=== PATIENT | male | born 1945 | race Caucasian/White ===

== ENCOUNTER 2016-11-18 08:00 | Outpatient (CLI) | payer MEDICARE | END 2016-11-18 08:01 | disposition home or self-care (01) | DX: I10 Essential (primary) hypertension (principal); E78.2 Mixed hyperlipidemia; R73.09 Other abnormal glucose; N40.0 Benign prostatic hyperplasia without lower urinary tract symptoms ==

== ENCOUNTER 2017-01-22 14:13 | Outpatient (CLI) | payer MEDICARE, OTHER ==
--- NOTE | 2017-01-22 17:07 | XRAY Report ---
THREE VIEW LEFT FOOT: 01/22/2017 CLINICAL INDICATION: Pain left 5th metatarsal. FINDINGS: AP, lateral, and oblique views of the left foot demonstrate no evidence of fracture or dis location. Osteoarthritic changes are noted in the 1st metatarsophalangeal joint. No acute fracture is seen. IMPRESSION: OSTEOARTHRITIS. NO EVIDENCE OF FRACTURE. JOB #: [id number] EXT JOB #:[id number]
== END 2017-01-22 14:14 | disposition home or self-care (01) ==
LOC: DI 14:13
PROVIDERS: ATTEND Podiatrist
DX: M19.072 Primary osteoarthritis, left ankle and foot (principal)

== ENCOUNTER 2017-11-28 08:00 | Outpatient (CLI) | payer MEDICARE, OTHER ==
[2017-11-28 12:35] LABS: BASOPHILS # (AUTO) 0.1 10^3/uL (0.0-0.1); EOSINOPHILS # (AUTO) 0.2 10^3/uL (0.0-0.7); EOSINOPHILS % (AUTO) 3.6 %; HGB - HEMOGLOBIN 14.7 g/dL (14.0-18.0); LYMPHOCYTES % (AUTO) 34.7 %; MEAN CORPUSCULAR HEMOGLOBIN 31.3 pg (27.0-31.0); MEAN CORPUSCULAR HGB CONC 33.9 g/dL (32.0-36.0); MEAN CORPUSCULAR VOLUME 92.5 fL (80.0-94.0); MEAN PLATELET VOLUME 10.6 fL (7.4-11.4); MONOCYTES # (AUTO) 0.4 10^3/uL (0.0-1.0); MONOCYTES % (AUTO) 7.2 %; NEUTROPHILS % (AUTO) 53.5 %; PLT - PLATELET COUNT 147 10^3/uL (130-450); RED BLOOD COUNT 4.69 10^6/uL (4.70-6.10); RED CELL DISTRIBUTION WIDTH 13.1 % (12.0-15.0); WHITE BLOOD COUNT 5.6 x10^3/uL (4.8-10.8)
[2017-11-28 13:07] LABS: HB2 TOTAL 16.1 g/dL; HEMOGLOBIN A1C 0.6 g/dL; HEMOGLOBIN A1C % 5.6 % (4.6-6.2)
[2017-11-28 13:15] LABS: ALBUMIN 4.2 g/dL (3.2-5.5); ALBUMIN/GLOBULIN RATIO 1.4 (1.0-2.2); ALKALINE PHOSPHATASE 52 IU/L (42-121); ALT ALANINE AMINOTRANSFERASE 29 IU/L (10-60); AST ASPARTATE AMINOTRANSFERASE 27 IU/L (10-42); BILIRUBIN,TOTAL 0.8 mg/dL (0.2-1.0); BUN - BLOOD UREA NITROGEN < 5 mg/dL (6-20); CALCIUM 8.9 mg/dL (8.5-10.3); CARBON DIOXIDE - CO2 24 mmol/L (21-32); CHLORIDE 105 mmol/L (101-111); CHOL/HDL RATIO 3.5 (<5.0); CHOLESTEROL 149 mg/dL; CREATININE 0.8 mg/dL (0.6-1.2); GFR - MDRD 95 (>89); GLUCOSE 105 mg/dL (70-100); HDL CHOLESTEROL 42 mg/dL; LDL CHOLESTEROL,CALCULATED 90 mg/dL; LDL/HDL RATIO 2.1 (<3.6); SODIUM 137 mmol/L (135-145); TOTAL PROTEIN 7.2 g/dL (6.7-8.2); VLDL CHOLESTEROL 17 mg/dL
== END 2017-11-28 08:01 | disposition home or self-care (01) ==
LOC: LAB.R 08:00
PROVIDERS: ATTEND Nurse Practitioner Primary Care
DX: E88.81 Metabolic syndrome and other insulin resistance (principal); R73.01 Impaired fasting glucose; Z79.899 Other long term (current) drug therapy; I10 Essential (primary) hypertension; E78.5 Hyperlipidemia, unspecified
CPT/HCPCS: 80053; 80061; 83036; 83721; 85025

== ENCOUNTER 2018-02-23 08:00 | Outpatient (CLI) | payer MEDICARE ==
[2018-02-23 13:37] LABS: ALT ALANINE AMINOTRANSFERASE 37 IU/L (10-60); AST ASPARTATE AMINOTRANSFERASE 26 IU/L (10-42); CHOLESTEROL 142 mg/dL; HDL CHOLESTEROL 47 mg/dL; LDL CHOLESTEROL,CALCULATED 73 mg/dL; LDL/HDL RATIO 1.6 (<3.6); VLDL CHOLESTEROL 22 mg/dL
== END 2018-02-23 08:01 | disposition home or self-care (01) ==
LOC: LAB.N 08:00
PROVIDERS: ATTEND Nurse Practitioner Primary Care
DX: E78.5 Hyperlipidemia, unspecified (principal); Z51.81 Encounter for therapeutic drug level monitoring
CPT/HCPCS: 36415; 80061; 83721; 84450; 84460

== ENCOUNTER 2018-04-07 14:37 | Emergency (ER) | payer MEDICARE ==
--- NOTE | 2018-04-07 15:34 | XRAY Report ---
Reason: fall/pain Procedure Date: 04/07/2018 Accession Number: [id number] / [id number] Procedure: XR - Foot 3 View RT CPT Code: FULL RESULT: EXAM: RIGHT FOOT RADIOGRAPHY EXAM DATE: 04/07/2018 03:11 PM. CLINICAL HISTORY: Fall. Pain, greatest in the area of the calcaneus. COMPARISON: Right foot MRI 11/23/2007. TECHNIQUE: 3 views. FINDINGS: Bones: Suspect prior surgical resection both sides of the fifth PIP joint. Trabecular and cortical patterns are intact. Joints: Normal. No subluxations. Soft Tissues: Moderate fifth toe edema. IMPRESSION: 1. No acute bony abnormality. 2. Moderate fifth toe edema, suspect remote osteotomy both sides of the fifth PIP joint. Correlate clinically to exclude cellulitis. RADIA
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
[2018-04-07 16:58] VITALS: BP 136/67
== END 2018-04-07 17:13 | disposition home or self-care (01) ==
LOC: ED 14:37
DX: S90.31XA Contusion of right foot, initial encounter (principal); W22.09XA Striking against other stationary object, initial encounter; W18.30XA Fall on same level, unspecified, initial encounter; Y93.39 Activity, other involving climbing, rappelling and jumping off; Y92.481 Parking lot as the place of occurrence of the external cause; I10 Essential (primary) hypertension; E78.00 Pure hypercholesterolemia, unspecified
CPT/HCPCS: 99282; 99283

== ENCOUNTER 2018-09-10 08:12 | Outpatient (CLI) | payer MEDICARE | END 2018-09-10 23:59 | LOC: LAB.N 08:12 | PROVIDERS: ATTEND Urology | DX: E29.1 Testicular hypofunction (principal) | CPT/HCPCS: 36415; 84403 ==

== ENCOUNTER 2019-07-04 16:23 | Emergency (ER) | payer MEDICARE ==
[2019-07-04 16:38] VITALS: BP 167/98
[2019-07-04 17:16] LABS: BILIRUBIN,URINE NEGATIVE (NEGATIVE); GLUCOSE, URINE (UA) NEGATIVE (NEGATIVE); KETONES,URINE (UA) NEGATIVE (NEGATIVE); LEUKOCYTE ESTERASE, URINE TRACE (NEGATIVE); NITRITE,URINE NEGATIVE (NEGATIVE); OCCULT BLOOD,URINE LARGE (NEGATIVE); PH,URINE 5.5 PH (5.0-7.5); PROTEIN,URINE 100 mg/dL (NEGATIVE); UROBILINOGEN,URINE 0.2 (NORMAL) E.U./dL (NORMAL)
[2019-07-04 17:22] LABS: CLARITY,URINE BLOODY (CLEAR)
[2019-07-04 17:23] LABS: BACTERIA,URINE Moderate /HPF (None Seen); RBC,URINE TNTC /HPF (0-5); SQUAMOUS EPITHELIAL CELL,UR RARE Squamous (<= Few)
--- NOTE | 2019-07-04 17:48 | ED Physician Documentation ---
PD HPI MALE - Stated complaint Stated Complaint: MALE - Chief complaint Chief Complaint: UTI - History obtained from History obtained from: Patient (This is a relatively healthy 74-year-old gentleman. Many years ago he had a TURP. He also had a case of urosepsis a few years ago. More recently on May 17 had a pelvic sling because of stress incontinence. Today started to develop dysuria and rosario colored hematuria. There is no fevers, back pain, nausea with it. He says that when he had his postop appoint with urologist after the sling his postvoid residual was only 5 mL.) Review of Systems Constitutional: denies: Fever, Chills GI: denies: Abdominal Pain, Nausea, Vomiting : reports: Dysuria, Frequency PD PAST MEDICAL HISTORY - Past Medical History Cardiovascular: Hypertension, High cholesterol Respiratory: None Endocrine/Autoimmune: None GI: None : Incontinence HEENT: None Psych: None Musculoskeletal: None Derm: None - Past Surgical History Past Surgical History: Yes - Present Medications Home Medications: Ambulatory Orders Medication Instructions Recorded Confirmed Atorvastatin Calcium 20 mg PO DAILY 10/21/18 10/21/18 Cholecalciferol (Vitamin D3) 1 cap PO DAILY 10/21/18 10/21/18 [Vitamin D3] Losartan Potassium 50 mg PO DAILY 10/21/18 10/21/18 Multivit-Min/FA/Lycopen/Lutein 1 tab PO DAILY 10/21/18 10/21/18 [Adults 50 Plus Multivitamin] Psyllium Husk [Daily Fiber] 0.52 gm PO DAILY 10/21/18 10/21/18 Ciprofloxacin HCl [Cipro] 500 mg PO BID #20 tablet 07/04/19 - Allergies Allergies/Adverse Reactions: Allergies Allergy/AdvReac Type Severity Reaction Status Date / Time lisinopril AdvReac Intermediate Unknown Verified 10/21/18 16:09 - Social History Does the pt smoke?: No Smoking Status: Never smoker Does the pt drink ETOH?: Yes Does the pt have substance abuse?: No - Immunizations Immunizations are current?: Yes - POLST Patient has POLST: No PD ED PE NORMAL - Vitals Vital signs reviewed: Yes - General General: Alert and oriented X 3, No acute distress - Abdomen Abdomen: Normal bowel sounds, Soft, Non tender - Back Back: No CVA TTP, No spinal TTP - Derm Derm: Normal color, Warm and dry - Extremities Extremities: No calf tenderness / cord - Neuro Neuro: Alert and oriented X 3, Normal speech Results - Vitals Vitals: Vital Signs - 24 hr 07/04/19 16:33 Temperature 36.9 C Heart Rate 80 Respiratory 18 Rate Blood Pressure 167/98 H O2 Saturation 99 Oxygen O2 Source Room air - Labs Labs: Laboratory Tests 07/04/19 07/04/19 07/04/19 16:50 18:05 18:05 WBC 11.6 H RBC 4.53 L Hgb 14.2 Hct 43.5 MCV 96.0 H MCH 31.3 H MCHC 32.6 RDW 12.4 Plt Count 179 MPV 11.4 Neut # (Auto) 9.0 H Lymph # (Auto) 1.6 [place] # (Auto) 0.6 Eos # (Auto) 0.3 Baso # (Auto) 0.1 Absolute Nucleated RBC 0.00 Nucleated RBC % 0.0 Sodium 139 Potassium 3.8 Chloride 105 Carbon Dioxide 25 Anion Gap 9.0 BUN 22 H Creatinine 0.9 Estimated GFR (MDRD) 83 L Glucose 104 H Lactic Acid Calcium 9.8 Urine Color RED/BLOODY Urine Clarity BLOODY Urine pH 5.5 Ur Specific [place] 1.025 Urine Protein 100 H Urine Glucose (UA) NEGATIVE Urine Ketones NEGATIVE Urine Occult Blood LARGE H Urine Nitrite NEGATIVE Urine Bilirubin NEGATIVE Urine Urobilinogen 0.2 (NORMAL) Ur Leukocyte Esterase TRACE H Urine RBC TNTC H Urine WBC 11-25 H Ur Squamous Epith Cells RARE Squamous Urine Bacteria Moderate H Ur Microscopic Review INDICATED Urine Culture Comments INDICATED 07/04/19 18:05 WBC RBC Hgb Hct MCV MCH MCHC RDW Plt Count MPV Neut # (Auto) Lymph # (Auto) [place] # (Auto) Eos # (Auto) Baso # (Auto) Absolute Nucleated RBC Nucleated RBC % Sodium Potassium Chloride Carbon Dioxide Anion Gap BUN Creatinine Estimated GFR (MDRD) Glucose Lactic Acid 0.7 Calcium Urine Color Urine Clarity Urine pH Ur Specific [place] Urine Protein Urine Glucose (UA) Urine Ketones Urine Occult Blood Urine Nitrite Urine Bilirubin Urine Urobilinogen Ur Leukocyte Esterase Urine RBC Urine WBC Ur Squamous Epith Cells Urine Bacteria Ur Microscopic Review Urine Culture Comments PD MEDICAL DECISION MAKING - ED course ED course: 74-year-old gentleman with history of urosepsis presents with UTI symptoms. He does not appear ill. Consideration for urinary retention given recent pelvic sling, however per his history is postvoid residual after the pelvic sling was negligible. Labs are really inconsistent with sepsis other than very mild leukocytosis. He was administered IM Rocephin here. Departure - Departure Disposition: 01 Home, Self Care Clinical Impression: Cystitis Condition: Good Record reviewed to determine appropriate education?: Yes Instructions: ED UTI Cystitis Male Prescriptions: Ciprofloxacin HCl [Cipro] 500 mg PO BID #20 tablet Comments: Not a terrible idea to follow-up with your urologist again given the proximity of timing to your surgery, there is no evidence of sepsis. We will culture your urine, the results should be done in 48-72 hours. If an antibiotic change is necessary we will call you. Return if worse in the meantime, especially if you develop increasing flank pain, fevers, or cannot keep down the medication. Discharge Date/Time: 07/04/19 18:52
[2019-07-04] MEDS ORDERED: LIDOCAINE 1% 2 ML VIAL MC ONE (18:05)
[2019-07-04] MEDS ORDERED: cefTRIAXone 1 GM VIAL IM STA (18:05)
[2019-07-04 18:18] LABS: BASOPHILS # (AUTO) 0.1 10^3/uL (0.0-0.1); BASOPHILS % (AUTO) 0.6 %; EOSINOPHILS # (AUTO) 0.3 10^3/uL (0.0-0.7); EOSINOPHILS % (AUTO) 2.2 %; HGB - HEMOGLOBIN 14.2 g/dL (14.0-18.0); LYMPHOCYTES # (AUTO) 1.6 10^3/uL (1.5-3.5); LYMPHOCYTES % (AUTO) 13.7 %; MEAN CORPUSCULAR HEMOGLOBIN 31.3 pg (27.0-31.0); MEAN CORPUSCULAR HGB CONC 32.6 g/dL (32.0-36.0); MEAN PLATELET VOLUME 11.4 fL (7.4-11.4); MONOCYTES # (AUTO) 0.6 10^3/uL (0.0-1.0); MONOCYTES % (AUTO) 5.3 %; NEUTROPHILS % (AUTO) 77.7 %; PLT - PLATELET COUNT 179 10^3/uL (130-450); RED BLOOD COUNT 4.53 10^6/uL (4.70-6.10); RED CELL DISTRIBUTION WIDTH 12.4 % (12.0-15.0); WHITE BLOOD COUNT 11.6 x10^3/uL (4.8-10.8)
[2019-07-04 18:23] LABS: CALCIUM 9.8 mg/dL (8.5-10.3); CREATININE 0.9 mg/dL (0.6-1.2)
== END 2019-07-04 18:52 | disposition home or self-care (01) ==
LOC: ED 16:23
DX: N30.91 Cystitis, unspecified with hematuria (principal); I10 Essential (primary) hypertension
CPT/HCPCS: 36415; 80048; 81001; 81003; 83605; 85025; 87040; 87086; 87181; 96374; 99283

== ENCOUNTER 2019-09-17 07:43 | Outpatient (CLI) | payer MEDICARE ==
[2019-09-17 11:50] LABS: BASOPHILS % (AUTO) 0.5 %; EOSINOPHILS # (AUTO) 0.3 10^3/uL (0.0-0.7); EOSINOPHILS % (AUTO) 5.3 %; HGB - HEMOGLOBIN 14.2 g/dL (14.0-18.0); LYMPHOCYTES # (AUTO) 1.2 10^3/uL (1.5-3.5); LYMPHOCYTES % (AUTO) 20.5 %; MEAN CORPUSCULAR HEMOGLOBIN 31.1 pg (27.0-31.0); MEAN CORPUSCULAR HGB CONC 32.2 g/dL (32.0-36.0); MEAN CORPUSCULAR VOLUME 96.5 fL (80.0-94.0); MEAN PLATELET VOLUME 11.6 fL (7.4-11.4); MONOCYTES # (AUTO) 0.4 10^3/uL (0.0-1.0); MONOCYTES % (AUTO) 5.8 %; NEUTROPHILS # (AUTO) 4.1 10^3/uL (1.5-6.6); NEUTROPHILS % (AUTO) 67.6 %; PLT - PLATELET COUNT 157 10^3/uL (130-450); RED BLOOD COUNT 4.57 10^6/uL (4.70-6.10); RED CELL DISTRIBUTION WIDTH 12.8 % (12.0-15.0); WHITE BLOOD COUNT 6.1 x10^3/uL (4.8-10.8)
[2019-09-17 12:08] LABS: ALBUMIN 3.9 g/dL (3.2-5.5); ALBUMIN/GLOBULIN RATIO 1.3 (1.0-2.2); ALKALINE PHOSPHATASE 57 IU/L (42-121); ALT ALANINE AMINOTRANSFERASE 32 IU/L (10-60); AST ASPARTATE AMINOTRANSFERASE 31 IU/L (10-42); BUN - BLOOD UREA NITROGEN 18 mg/dL (6-20); CALCIUM 8.7 mg/dL (8.5-10.3); CARBON DIOXIDE - CO2 25 mmol/L (21-32); CHLORIDE 101 mmol/L (101-111); CHOL/HDL RATIO 2.6 (<5.0); CHOLESTEROL 132 mg/dL; CREATININE 0.8 mg/dL (0.6-1.2); GFR - MDRD 95 (>89); GLUCOSE 108 mg/dL (70-100); HDL CHOLESTEROL 51 mg/dL; LDL CHOLESTEROL,CALCULATED 70 mg/dL; LDL/HDL RATIO 1.4 (<3.6); SODIUM 137 mmol/L (135-145); TOTAL PROTEIN 6.8 g/dL (6.7-8.2); VLDL CHOLESTEROL 11 mg/dL
[2019-09-17 12:25] LABS: HB2 TOTAL 13.9 g/dL; HEMOGLOBIN A1C 0.61 g/dL; HEMOGLOBIN A1C % 6.2 % (4.6-6.2)
== END 2019-09-17 23:59 | disposition home or self-care (01) ==
LOC: LAB.N 07:43
PROVIDERS: ATTEND Family Medicine
DX: E78.5 Hyperlipidemia, unspecified (principal); R73.03 Prediabetes; R35.0 Frequency of micturition; I10 Essential (primary) hypertension
CPT/HCPCS: 36415; 80053; 80061; 83036; 83721; 84443; 85025

== ENCOUNTER 2020-10-09 07:55 | Outpatient (CLI) | payer MEDICARE ==
[2020-10-09 11:41] LABS: HCT - HEMATOCRIT 45.8 % (42.0-52.0); HGB - HEMOGLOBIN 14.8 g/dL (14.0-18.0); MEAN CORPUSCULAR HEMOGLOBIN 31.2 pg (27.0-31.0); MEAN CORPUSCULAR HGB CONC 32.3 g/dL (32.0-36.0); MEAN CORPUSCULAR VOLUME 96.4 fL (80.0-94.0); MEAN PLATELET VOLUME 12.3 fL (7.4-11.4); RED BLOOD COUNT 4.75 10^6/uL (4.70-6.10); RED CELL DISTRIBUTION WIDTH 12.4 % (12.0-15.0); WHITE BLOOD COUNT 5.7 x10^3/uL (4.8-10.8)
[2020-10-09 11:59] LABS: ALBUMIN 4.2 g/dL (3.2-5.5); ALBUMIN/GLOBULIN RATIO 1.4 (1.0-2.2); ALKALINE PHOSPHATASE 61 IU/L (42-121); ALT ALANINE AMINOTRANSFERASE 34 IU/L (10-60); AST ASPARTATE AMINOTRANSFERASE 36 IU/L (10-42); BUN - BLOOD UREA NITROGEN 16 mg/dL (6-20); CALCIUM 9.4 mg/dL (8.5-10.3); CARBON DIOXIDE - CO2 26 mmol/L (21-32); CHLORIDE 103 mmol/L (101-111); CHOL/HDL RATIO 2.8 (<5.0); CHOLESTEROL 158 mg/dL; CREATININE 0.9 mg/dL (0.6-1.2); GFR - MDRD 82 (>89); GLUCOSE 124 mg/dL (70-100); HDL CHOLESTEROL 57 mg/dL; LDL CHOLESTEROL,CALCULATED 80 mg/dL; LDL/HDL RATIO 1.4 (<3.6); POTASSIUM 4.2 mmol/L (3.5-5.0); SODIUM 139 mmol/L (135-145); TOTAL PROTEIN 7.1 g/dL (6.7-8.2); TRIGLYCERIDES 104 mg/dL; VLDL CHOLESTEROL 21 mg/dL
[2020-10-09 12:10] LABS: THYROID STIMULATING HORMONE 2.58 uIU/mL (0.34-5.60)
[2020-10-09 12:45] LABS: ESTIMATED AVERAGE GLUCOSE 114 mg/dL (70-100); HEMOGLOBIN A1c% 5.6 % (4.27-6.07)
== END 2020-10-09 07:56 | disposition home or self-care (01) ==
LOC: LAB.N 07:55
PROVIDERS: ATTEND Family Medicine
DX: E78.5 Hyperlipidemia, unspecified (principal); R32 Unspecified urinary incontinence; I10 Essential (primary) hypertension; R73.9 Hyperglycemia, unspecified
CPT/HCPCS: 36415; 80053; 80061; 83036; 84443; 85027; G0103; 83721; 84153

== ENCOUNTER 2021-11-21 08:44 | Outpatient (CLI) | payer MEDICARE ==
[2021-11-21 12:08] LABS: BASOPHILS # (AUTO) 0.1 10^3/uL (0.0-0.1); BASOPHILS % (AUTO) 1.2 %; EOSINOPHILS # (AUTO) 0.4 10^3/uL (0.0-0.7); EOSINOPHILS % (AUTO) 7.7 %; HCT - HEMATOCRIT 42.3 % (42.0-52.0); HGB - HEMOGLOBIN 14.1 g/dL (14.0-18.0); LYMPHOCYTES # (AUTO) 1.4 10^3/uL (1.5-3.5); LYMPHOCYTES % (AUTO) 24.6 %; MEAN CORPUSCULAR HEMOGLOBIN 31.7 pg (27.0-31.0); MEAN CORPUSCULAR HGB CONC 33.3 g/dL (32.0-36.0); MEAN CORPUSCULAR VOLUME 95.1 fL (80.0-94.0); MEAN PLATELET VOLUME 12.1 fL (7.4-11.4); MONOCYTES # (AUTO) 0.3 10^3/uL (0.0-1.0); MONOCYTES % (AUTO) 5.3 %; NEUTROPHILS # (AUTO) 3.5 10^3/uL (1.5-6.6); NEUTROPHILS % (AUTO) 60.8 %; PLT - PLATELET COUNT 163 10^3/uL (130-450); RED BLOOD COUNT 4.45 10^6/uL (4.70-6.10); RED CELL DISTRIBUTION WIDTH 12.9 % (12.0-15.0); WHITE BLOOD COUNT 5.7 x10^3/uL (4.8-10.8)
[2021-11-21 12:46] LABS: ALBUMIN 4.2 g/dL (3.2-5.5); ALBUMIN/GLOBULIN RATIO 1.4 (1.0-2.2); ALKALINE PHOSPHATASE 62 IU/L (42-121); ALT ALANINE AMINOTRANSFERASE 36 IU/L (10-60); AST ASPARTATE AMINOTRANSFERASE 33 IU/L (10-42); BILIRUBIN,TOTAL 1.2 mg/dL (0.2-1.0); BUN - BLOOD UREA NITROGEN 18 mg/dL (6-20); CALCIUM 9.4 mg/dL (8.5-10.3); CARBON DIOXIDE - CO2 27 mmol/L (21-32); CHLORIDE 102 mmol/L (101-111); CHOL/HDL RATIO 2.5 (<5.0); CHOLESTEROL 141 mg/dL; GFR - MDRD 73 (>89); GLUCOSE 109 mg/dL (70-100); HDL CHOLESTEROL 56 mg/dL; LDL CHOLESTEROL,CALCULATED 72 mg/dL; LDL/HDL RATIO 1.3 (<3.6); POTASSIUM 4.2 mmol/L (3.5-5.0); SODIUM 139 mmol/L (135-145); TOTAL PROTEIN 7.2 g/dL (6.7-8.2); TRIGLYCERIDES 67 mg/dL; VLDL CHOLESTEROL 13 mg/dL
[2021-11-21 12:53] LABS: THYROID STIMULATING HORMONE 1.99 uIU/mL (0.34-5.60)
== END 2021-11-21 08:45 | disposition home or self-care (01) ==
LOC: LAB.N 08:44
PROVIDERS: ATTEND Family Medicine
DX: R73.03 Prediabetes (principal); E78.5 Hyperlipidemia, unspecified; I10 Essential (primary) hypertension
CPT/HCPCS: 36415; 80053; 80061; 81599; 83036; 83721; 84443; 85025

== ENCOUNTER 2021-12-04 09:35 | Outpatient (CLI) | payer MEDICARE ==
--- NOTE | 2021-12-04 15:21 | XRAY Report ---
PROCEDURE: Shoulder 2 View LT INDICATIONS: IMPINGEMENT SYNDROME OF LT SHOULDER TECHNIQUE: 3 views of the shoulder were acquired. COMPARISON: None. FINDINGS: Bones: No fractures or dislocations. No suspicious bony lesions. Visualized ribs appear intact. M oderate to severe acromioclavicular degenerative narrowing. Small osteophytes are present. Mild gleno humeral narrowing. Soft tissues: No suspicious soft tissue calcifications. IMPRESSION: Acromioclavicular and glenohumeral arthritic narrowing. Reviewed by: Keyonna Purcell MD on 12/04/2021 3:19 PM PDT Approved by: Keyonna Purcell MD on 12/04/2021 3:19 PM PDT Station ID: [id number]
== END 2021-12-04 09:36 | disposition home or self-care (01) ==
LOC: DI 09:35
PROVIDERS: ATTEND Family Medicine
DX: M75.42 Impingement syndrome of left shoulder (principal); M19.012 Primary osteoarthritis, left shoulder

== ENCOUNTER 2023-06-28 07:25 | Outpatient (CLI) | payer MEDICARE ==
[2023-06-28 07:46] LABS: BASOPHILS # (AUTO) 0.1 10^3/uL (0.0-0.1); BASOPHILS % (AUTO) 1.2 %; EOSINOPHILS # (AUTO) 0.2 10^3/uL (0.0-0.7); EOSINOPHILS % (AUTO) 3.7 %; HCT - HEMATOCRIT 42.1 % (42.0-52.0); HGB - HEMOGLOBIN 13.6 g/dL (14.0-18.0); LYMPHOCYTES # (AUTO) 1.8 10^3/uL (1.5-3.5); LYMPHOCYTES % (AUTO) 28.1 %; MEAN CORPUSCULAR HEMOGLOBIN 30.8 pg (27.0-31.0); MEAN CORPUSCULAR HGB CONC 32.3 g/dL (32.0-36.0); MEAN CORPUSCULAR VOLUME 95.2 fL (80.0-94.0); MEAN PLATELET VOLUME 10.2 fL (7.4-11.4); MONOCYTES # (AUTO) 0.5 10^3/uL (0.0-1.0); NEUTROPHILS # (AUTO) 3.8 10^3/uL (1.5-6.6); NEUTROPHILS % (AUTO) 59.7 %; PLT - PLATELET COUNT 229 10^3/uL (130-450); RED BLOOD COUNT 4.42 10^6/uL (4.70-6.10); RED CELL DISTRIBUTION WIDTH 13.2 % (12.0-15.0); WHITE BLOOD COUNT 6.4 x10^3/uL (4.8-10.8)
[2023-06-28 08:10] LABS: ALBUMIN 4.1 g/dL (3.2-5.5); ALBUMIN/GLOBULIN RATIO 1.6 (1.0-2.2); ALKALINE PHOSPHATASE 68 IU/L (42-121); ALT ALANINE AMINOTRANSFERASE 40 IU/L (10-60); AST ASPARTATE AMINOTRANSFERASE 29 IU/L (10-42); BUN - BLOOD UREA NITROGEN 15 mg/dL (6-20); CALCIUM 9.3 mg/dL (8.5-10.3); CARBON DIOXIDE - CO2 30 mmol/L (21-32); CHLORIDE 101 mmol/L (101-111); CHOL/HDL RATIO 2.5 (<5.0); CHOLESTEROL 121 mg/dL; CREATININE 0.8 mg/dL (0.6-1.3); GFR - MDRD 94 (>89); GLUCOSE 119 mg/dL (74-104); HDL CHOLESTEROL 49 mg/dL; LDL CHOLESTEROL,CALCULATED 54 mg/dL; LDL/HDL RATIO 1.1 (<3.6); POTASSIUM 4.2 mmol/L (3.5-4.5); SODIUM 136 mmol/L (135-145); TOTAL PROTEIN 6.7 g/dL (6.4-8.9); TRIGLYCERIDES 91 mg/dL (48-352); VLDL CHOLESTEROL 18 mg/dL
[2023-06-28 08:24] LABS: THYROID STIMULATING HORMONE 2.38 uIU/mL (0.34-5.60)
--- NOTE | 2023-06-28 10:32 | XRAY Report ---
PROCEDURE: Chest 2 View X-Ray INDICATIONS: DYSPNEA ON EXERTION TECHNIQUE: 2 views of the chest were acquired. COMPARISON: None. FINDINGS: Surgical changes and devices: None. Lungs and pleura: There is flattening of the diaphragms. Bibasilar atelectasis. No pleural effusions or pneumothorax. Lungs are clear. Mediastinum: Mediastinal contours appear normal. Heart size is normal. Bones and chest wall: No suspicious bony lesions. Overlying soft tissues appear unremarkable. IMPRESSION: Flattening of the diaphragms may reflect poor inspiratory effort versus sequela of chronic obstructiv e etiologies. Reviewed by: Remberto Evans MD on 06/28/2023 9:31 AM [facility] Approved by: Rembetro Evans MD on 06/28/2023 9:31 AM [facility] Station ID: [id number]
[2023-06-28 11:07] LABS: ESTIMATED AVERAGE GLUCOSE 111 mg/dL (70-100); HEMOGLOBIN A1c% 5.5 % (4.27-6.07)
== END 2023-06-28 07:26 | disposition home or self-care (01) ==
LOC: DI 07:25
PROVIDERS: ATTEND Physician Assistant
DX: R06.9 Unspecified abnormalities of breathing (principal); U09.9 Post COVID-19 condition, unspecified; R73.03 Prediabetes; E78.5 Hyperlipidemia, unspecified; I10 Essential (primary) hypertension
CPT/HCPCS: 36415; 80053; 80061; 83036; 83721; 83880; 84443; 85025

== ENCOUNTER 2023-07-15 08:45 | Outpatient (CLI) | payer MEDICARE | END 2023-07-15 08:46 | disposition critical access hospital (66) | LOC: EMS 08:45 | DX: I48.91 Unspecified atrial fibrillation (principal); R06.02 Shortness of breath; M79.89 Other specified soft tissue disorders | CPT/HCPCS: A0425; A0429 ==

== ENCOUNTER 2023-07-15 09:07 | Inpatient (IN) | payer MEDICARE ==
--- NOTE | 2023-07-15 09:38 | ED Physician Documentation ---
PD HPI CHEST PAIN - Stated complaint Stated Complaint: AFIB/RVR - Chief complaint Chief Complaint: Cardiac - History obtained from History obtained from: Patient - History of Present Illness Timing - onset: How many months ago (1-2 months of progressive dyspnea on exertion, orthopnea, and cough/wheezing.) Timing - onset during: Light activity (The patient has noticed a feeling of palpitations and fast heart rate at times with activity and also progressive dyspnea on exertion to the point of difficulty even walking across the room or short flight of stairs now the past week or so. Has noticed pedal edema as well and orthopnea.), Exertion Timing - duration: Weeks Timing - details: Gradual onset, Still present Quality: Tightness Location: Substernal, Left chest Radiation: No: Jaw, Neck Associated symptoms: Palpitations (intermittently, not consistent.), Cough (He did have a viral type illness about 2 months ago in early May tested positive for COVID. Has had some level of fatigue and dyspnea and some persistent cough for at least a month after that. He presume current symptoms were related.) Recently seen: Clinic (Seen at walk-in clinic about 3 weeks ago for this. Had a negative chest x-ray. BNP was low 300s. Blood count electrolytes were okay. He was in a sinus rhythm reportedly at that time. Treated with an inhaler presumed respiratory.) PD PAST MEDICAL HISTORY - Past Medical History Past Medical History: Yes Cardiovascular: Hypertension, High cholesterol Respiratory: None Endocrine/Autoimmune: None GI: None : Incontinence, Other HEENT: None Psych: None Musculoskeletal: None Derm: None Other Past Medical History: UTI requiring hospitalization. - Past Surgical History Past Surgical History: Yes - Present Medications Home Medications: Ambulatory Orders Medication Instructions Recorded Confirmed Atorvastatin Calcium 20 mg PO DAILY 10/21/18 07/15/23 Cholecalciferol (Vitamin D3) 1 cap PO DAILY 10/21/18 07/15/23 [Vitamin D3] Losartan Potassium 50 mg PO DAILY 10/21/18 07/15/23 Multivit-Min/FA/Lycopen/Lutein 1 tab PO DAILY 10/21/18 07/15/23 [Adults 50 Plus Multivitamin] Psyllium Husk [Daily Fiber] 0.52 gm PO DAILY 10/21/18 07/15/23 Albuterol Sulf [Ventolin Hfa 1 inh INH PRN PRN 07/15/23 07/15/23 Inhaler] - Allergies Allergies/Adverse Reactions: Allergies Allergy/AdvReac Type Severity Reaction Status Date / Time latex Allergy Rash Verified 07/15/23 09:39 lisinopril AdvReac Intermediate Unknown Verified 01/14/22 05:43 - Social History Does the pt smoke?: No Smoking Status: Never smoker Does the pt drink ETOH?: Yes Does the pt have substance abuse?: No - Immunizations Immunizations are current?: Yes - POLST Patient has POLST: No PD ED PE NORMAL - Vitals Vital signs reviewed: Yes (HR tachycardic) - General General: Alert and oriented X 3, Well developed/nourished - Neck Neck: Supple, no meningeal sign, No adenopathy - Cardiac Cardiac: No murmur. No: RRR (irregular and tachycardic) - Respiratory Respiratory: No respiratory distress. No: Clear bilaterally (fine crackles both bases about third way up. ) - Abdomen Abdomen: Soft, Non tender - Derm Derm: Normal color, Warm and dry - Extremities Extremities: No tenderness to palpate, Normal ROM s pain, No calf tenderness / cord, Other (1+ edema in both lower legs up to the shins) - Neuro Neuro: Alert and oriented X 3, No motor deficit, Normal speech Results - Vitals Vitals: Vital Signs - 24 hr 07/15/23 07/15/23 07/15/23 09:09 11:10 11:27 Temperature 36.9 C Heart Rate 124 H 133 H 114 H Respiratory 14 Rate Blood Pressure 142/101 H 144/97 H 129/106 H O2 Saturation 95 07/15/23 07/15/23 07/15/23 11:30 11:35 11:57 Temperature Heart Rate 118 H 105 H 113 H Respiratory Rate Blood Pressure 130/96 H 119/86 H 127/89 H O2 Saturation 07/15/23 07/15/23 07/15/23 12:01 12:16 12:51 Temperature Heart Rate 134 H 124 H 126 H Respiratory 24 Rate Blood Pressure 150/121 H 159/88 H 143/83 H O2 Saturation 95 07/15/23 07/15/23 07/15/23 12:56 14:25 14:35 Temperature Heart Rate 123 H 134 H 107 H Respiratory 32 H Rate Blood Pressure 141/113 H 118/101 H 124/87 H O2 Saturation 97 07/15/23 07/15/23 14:40 14:50 Temperature Heart Rate 96 116 H Respiratory Rate Blood Pressure 143/98 H 138/83 H O2 Saturation Oxygen O2 Source Room air - EKG (time done) 09:15 EKG releavant findings:: EKG personally interpreted by author of this note. Relevant findings are: Rate: Rate (enter#) (135) Rhythm: Atrial fibrillation QRS: Normal Ischemia: Normal ST segments. No: ST elevation c/w ischemia, ST depression - Labs Labs: Laboratory Tests 07/15/23 07/15/23 07/15/23 09:36 09:36 09:36 WBC 6.9 RBC 4.26 L Hgb 12.9 L Hct 40.7 L MCV 95.5 H MCH 30.3 MCHC 31.7 L RDW 13.5 Plt Count 181 MPV 10.9 Neut # (Auto) 5.6 Lymph # (Auto) 0.7 L [place] # (Auto) 0.4 Eos # (Auto) 0.1 Baso # (Auto) 0.1 Absolute Nucleated RBC 0.00 Nucleated RBC % 0.0 D-Dimer 235.6 Sodium 134 L Potassium 4.3 Chloride 101 Carbon Dioxide 27 Anion Gap 6.0 BUN 17 Creatinine 0.8 Estimated GFR (MDRD) 94 Glucose 143 H Calcium 9.4 Magnesium Total Bilirubin 1.1 H AST 27 ALT 33 Alkaline Phosphatase 76 Troponin I High Sens 15.6 B-Natriuretic Peptide Total Protein 6.6 Albumin 4.2 Globulin 2.4 Albumin/Globulin Ratio 1.8 Lipase 16 TSH 07/15/23 07/15/23 07/15/23 09:36 09:36 14:39 WBC RBC Hgb Hct MCV MCH MCHC RDW Plt Count MPV Neut # (Auto) Lymph # (Auto) [place] # (Auto) Eos # (Auto) Baso # (Auto) Absolute Nucleated RBC Nucleated RBC % D-Dimer Sodium 135 Potassium 3.8 Chloride 100 L Carbon Dioxide 27 Anion Gap 8.0 BUN 15 Creatinine 0.8 Estimated GFR (MDRD) 94 Glucose 134 H Calcium 9.6 Magnesium 1.7 1.7 Total Bilirubin AST ALT Alkaline Phosphatase Troponin I High Sens B-Natriuretic Peptide 303 H Total Protein Albumin Globulin Albumin/Globulin Ratio Lipase TSH 2.10 - Rads (name of study) chest xray Relevant Findings:: Prelim report reviewed, EMP independent interpretation of test (CHF without effusions) PD Medical Decision Making - ED course Complexity details: re-evaluated patient (The patient was given doses of diltiazem IV and aliquots of 10 mill grams and then 15 mg. He had slowing of the heart rate but still increased again up above 1 10-1 20. Blood pressure is good. He was given diuretic dose of furosemide 20 mg IV as well.), considered differential (Atrial fibrillation with fast ventricular rate. Unclear duration and could even be days to a week or so. Was seen at the clinic for dyspnea end of June with a normal sinus rhythm at that time. Does have some congestive failure with edema, orthopnea, vascular congestion on x-ray. Neg trop.), d/w patient ED course: The patient is described some feeling of fast heart rate and palpitations intermittently over the last several weeks. Unclear if consistent atrial fibrillation with fast rate versus it paroxysmal. He did not really feel it consistently here after slowing down a bit with some diltiazem. So unclear duration and certainly not clearly under 48 hours. He does have progressive orthopnea, edema, dyspnea on exertion and has a chest x-ray and lung sounds consistent with some congestive failure. He was given furosemide 20 mg IV diuretic. This may be rate related as opposed to ischemic. I did order a echocardiogram which may help guide us on this. The patient was given doses of diltiazem. We will want to start anticoagulation as well. I will defer that to the hospitalist. We are not getting consistent rate control with IV doses and so I talked with the hospitalist about further care in the hospital. He is not hypoxic. He is blood pressure is good. Troponin is negative. BNP is elevated only in the 300s but clinically he does have fluid overload. Kidney function is adequate. Electrolytes are good at this point but certainly will want to recheck them after the diuretic effect. He has been putting out decent amount of urine after the furosemide. He was given 3 separate doses of diltiazem IV with slowing of his heart rate down to approximately 100-1 20 but not consistently below 110. Blood pressure is adequate. He is feeling less shortness of breath as he diuresis well. Departure - Departure Disposition: ED Place in Observation Clinical Impression: Atrial fibrillation with RVR, Acute dyspnea, Congestive heart failure Condition: Stable Record reviewed to determine appropriate education?: Yes
[2023-07-15 09:41] LABS: BASOPHILS # (AUTO) 0.1 10^3/uL (0.0-0.1); BASOPHILS % (AUTO) 0.9 %; EOSINOPHILS # (AUTO) 0.1 10^3/uL (0.0-0.7); HCT - HEMATOCRIT 40.7 % (42.0-52.0); HGB - HEMOGLOBIN 12.9 g/dL (14.0-18.0); LYMPHOCYTES # (AUTO) 0.7 10^3/uL (1.5-3.5); LYMPHOCYTES % (AUTO) 10.4 %; MEAN CORPUSCULAR HEMOGLOBIN 30.3 pg (27.0-31.0); MEAN CORPUSCULAR HGB CONC 31.7 g/dL (32.0-36.0); MEAN CORPUSCULAR VOLUME 95.5 fL (80.0-94.0); MEAN PLATELET VOLUME 10.9 fL (7.4-11.4); MONOCYTES # (AUTO) 0.4 10^3/uL (0.0-1.0); MONOCYTES % (AUTO) 6.2 %; NEUTROPHILS # (AUTO) 5.6 10^3/uL (1.5-6.6); NEUTROPHILS % (AUTO) 81.2 %; PLT - PLATELET COUNT 181 10^3/uL (130-450); RED BLOOD COUNT 4.26 10^6/uL (4.70-6.10); RED CELL DISTRIBUTION WIDTH 13.5 % (12.0-15.0); WHITE BLOOD COUNT 6.9 x10^3/uL (4.8-10.8)
--- NOTE | 2023-07-15 09:51 | XRAY Report ---
PROCEDURE: Chest 1 View X-Ray INDICATIONS: Chest Pain TECHNIQUE: One view of the chest was acquired. COMPARISON: 06/28/2023 FINDINGS: Surgical changes and devices: None. Lungs and pleura: Interstitial pulmonary edema, patchy bibasilar atelectasis. Mediastinum: Mediastinal contours appear normal. Cardiomegaly. Bones and chest wall: No suspicious bony lesions. Overlying soft tissues appear unremarkable. IMPRESSION: Congestive heart failure exacerbation. Reviewed by: Hung Madrigal MD on 07/15/2023 9:50 AM [facility] Approved by: Hung Madrigal MD on 07/15/2023 9:50 AM [facility] Station ID: [id number]
[2023-07-15 09:56] LABS: ALBUMIN 4.2 g/dL (3.2-5.5); ALBUMIN/GLOBULIN RATIO 1.8 (1.0-2.2); BILIRUBIN,TOTAL 1.1 mg/dL (0.2-1.0); CALCIUM 9.4 mg/dL (8.5-10.3); CREATININE 0.8 mg/dL (0.6-1.3); POTASSIUM 4.3 mmol/L (3.5-4.5); TOTAL PROTEIN 6.6 g/dL (6.4-8.9)
[2023-07-15 10:01] LABS: TROPONIN I HIGH SENSITIVITY 15.6 ng/L (2.3-19.7)
[2023-07-15 10:38] LABS: MAGNESIUM 1.7 mg/dL (1.7-2.3)
[2023-07-15] MEDS ORDERED: diltiaZEM INJ 5 MG/ML VIAL IVP STA ×3 (10:38→14:14)
[2023-07-15] MEDS ORDERED: FUROSEMIDE 20 MG/2 ML VIAL IVP STA (10:38)
[2023-07-15 10:50] LABS: THYROID STIMULATING HORMONE 2.1 uIU/mL (0.34-5.60)
[2023-07-15 15:00] LABS: CALCIUM 9.6 mg/dL (8.5-10.3); CREATININE 0.8 mg/dL (0.6-1.3); MAGNESIUM 1.7 mg/dL (1.7-2.3); POTASSIUM 3.8 mmol/L (3.5-4.5)
[2023-07-15] MEDS ORDERED: ONDANSETRON ODT 4 MG TABLET TL PRN (15:01)
[2023-07-15] MEDS ORDERED: ONDANSETRON 4 MG/2 ML VIAL IVP PRN (15:01)
[2023-07-15] MEDS ORDERED: oxyCODONE 5 MG TABLET PO PRN (15:01)
[2023-07-15] MEDS ORDERED: SODIUM CHLORIDE FLUSH 0.9% 10 ML SYRINGE IVP PRN (15:01)
[2023-07-15] MEDS ORDERED: ACETAMINOPHEN 325 MG TABLET PO PRN (15:01)
--- NOTE | 2023-07-15 15:08 | HISTORY & PHYSICAL EXAMINATION ---
Chief Complaint - Chief Complaint Chief Complaint: short of breath w afib on EKG from clinic History of Present Illness - Admitted From Admitted From:: Home - History Obtained From Records Reviewed: [employer] History obtained from: Patient and Dr. Hodge Exam Limitations: None - History of Present Illness HPI Comment/Other: This patient does not have any antecedent cardiac history. His main problems have been urological. He became ill with COVID in May 2023 and took Paxlovid. He retested again June 11, 2023 because he was having low energy, wheezing, and the wheezing and shortness of breath seem to be a little worse when he is laying flat in bed. Seem to be a little bit better when he stood up or sat up. He was having chest aching with exertion on the right side. It seemed to go away with rest. He called the office with these complaints on June 26 and was scheduled for an appointment the next day. Seen in the primary care provider office where an EKG showed him to have normal sinus rhythm. His heart rate was 76 beats a minute. And his overall exam was negative from a cardiovascular perspective. No mention of edema or not. There was discussion on whether he was having post-COVID symptoms and it was requested that he get a chest x-ray and an echo and his albuterol inhaler was refilled. Chest x-ray had bibasilar atelectasis, no effusions, and he was felt to have poo r inspiratory effort. A referral for an echo was done. He then presented to the [facility] clinic/walk-in clinic today. He was having a swollen right ankle. It been going on for 5 days. He was still reporting shortness of breath. His heart rate was 134 beats a minute and was irregularly irregular. He was 97% on room air. They felt that he should be sent to the emergency room for further evaluation and management. And he was brought here by EMS from the clinic. In our emergency room He described the shortness of breath and intermittent palpitations for the last few weeks. Unilateral leg edema. And orthopnea. He denied fever, cough, chest congestion. Denies eustachian tube dysfunction. his heart rate was 124 and telemetry and EKG confirmed atrial fibrillation. Blood pressure 142/101. He was 95% saturated on room air. He is received 3 doses of diltiazem. Because the chest x-ray was interpreted as possible congestive heart failure he was also given Lasix 20 mg IV push. Patient still has a heart rate is consistently above 110. Assess the emergency room provider is asked me to place him in observation to control his heart rate. An echo was being done in the emergency room before the patient was transferred to [facility]. Workup in the ER consisted of the EKG, troponin, and TSH. Those were normal. BNP was mildly elevated at 303. Electrolytes and CBC were normal. Calcium magnesium and phosphorus were normal. Random glucose is 134. History - Past Medical History Cardiovascular: reports: Hypertension, High cholesterol Respiratory: reports: Other (COVID 05/2023, status post Paxlovid) Neuro: reports: Other (Benign positional vertigo) Endocrine/Autoimmune: reports: None GI: reports: Colon polyps, Other (diverticulosis on scope 11/2022) : reports: Benign prostate hypertrophy, Incontinence, Other (UTI in 2013 and 2019. 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 mechanical urinary sphicter 2020) HEENT: reports: Rhinoplasty Derm: reports: Other (AK treated w cryo) - Family & Social History Family History Comment/Other: Dad at age 85 with complications of peripheral vascular disease, severe smoking. Mom age 85 of old age. 1 brother and 2 sisters are healthy without blood pressure, diabetes, cancer, thyroid. No children Living arrangement: At home Living Situation: With spouse/s.o. Social History Notes: Started smoking at the age of 19. 2 packs/day. Quit 1989. Smoked pipes for 6 more years and quit in 1995. Drinks 2-3 a day. Was told he drank too much when he was in the [employer] but did not feel he had a problem with alcoholism. 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 to his first [place]11 y[place], then boat [place] 2 [place], then back in a house. - Substance History Use: Uses substance without health or social issues: NONE Abuse: Recurrent use of substance despite neg consequences: NONE Dependence: Experiences withdrawal or developed tolerances: NONE - POLST Patient has POLST: No POLST Status: DNR Meds/Allgy - Home Medications Home Medications: Ambulatory Orders Medication Instructions Recorded Confirmed Atorvastatin Calcium 20 mg PO DAILY 10/21/18 07/15/23 Cholecalciferol (Vitamin D3) 1 cap PO DAILY 10/21/18 07/15/23 [Vitamin D3] Losartan Potassium 50 mg PO DAILY 10/21/18 07/15/23 Multivit-Min/FA/Lycopen/Lutein 1 tab PO DAILY 10/21/18 07/15/23 [Adults 50 Plus Multivitamin] Psyllium Husk [Daily Fiber] 0.52 gm PO DAILY 10/21/18 07/15/23 Albuterol Sulf [Ventolin Hfa 1 inh INH PRN PRN 07/15/23 07/15/23 Inhaler] Rivaroxaban [Xarelto] 20 mg PO DAILY #30 tablet 07/15/23 - Allergies Allergies/Adverse Reactions: Allergies Allergy/AdvReac Type Severity Reaction Status Date / Time latex Allergy Rash Verified 07/15/23 09:39 lisinopril AdvReac Intermediate Unknown Verified 01/14/22 05:43 Review of Systems - Constitutional Constitutional: reports: Fatigue, Malaise, Weakness - Eyes Eyes: denies: Pain, Irritation, Amaurosis, Blurred vision - Ears, Nose & Throat Ears, Nose & Throat: reports: Vertigo, Postnasal drainage. denies: Hearing loss, Hearing aids, Tinnitus - Cardiovascular Cariovascular: reports: Irregular heart rate, Palpitations, Chest pain, Edema, Exertional dyspnea, Decr. exercise tolerance - Respiratory Respiratory: reports: Cough, SOB at rest, SOB with exertion - Gastrointestinal Gastrointestinal: denies: Abdominal pain, Abdominal distention, Constipation - Genitourinary Genitourinary: reports: Frequency, Urgency, Incontinence, Nocturia. denies: Dysuria, Hematuria, Flank pain, Urethral discharge - Musculoskeletal Musculoskeletal: reports: Back pain, Joint pain (Shoulder impingement). denies: Muscle pain, Muscle aches, Stiffness - Integumentary Integumentary: denies: Rash, Pruritis, Lesions, Dryness - Neurological Neurological: reports: Dizziness. denies: General weakness, Focal weakness, Headache, Pre-existing deficit, Abnormal gait - Psychiatric Psychiatric: denies: Depression, Anxiety, Suicidal - Endocrine Endocrine: denies: Polyuria, Polydypsia, Polyphagia - Hematologic/Lymphatic Hematologic/Lymphatic: denies: Anemia, Bruising, Petechiae Prior Level of Functionality: Independent with activities of daily living. 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 Walks 2 miles a day. No use of durable medical equipment. That is, until this recent shortness of breath episode for the last month. Now he cannot walk even half a mile Exam - Vital Signs Reviewed Vital Signs: Yes Vital Signs: Vital Signs x48h Temp Pulse Resp BP Pulse Ox 07/15/23 14:50 116 H 138/83 H 07/15/23 14:40 96 143/98 H 07/15/23 14:35 107 H 124/87 H 07/15/23 14:25 134 H 118/101 H 07/15/23 12:56 123 H 32 H 141/113 H 97 07/15/23 12:51 126 H 24 143/83 H 95 07/15/23 12:16 124 H 159/88 H 07/15/23 12:01 134 H 150/121 H 07/15/23 11:57 113 H 127/89 H 07/15/23 11:35 105 H 119/86 H 07/15/23 11:30 118 H 130/96 H 07/15/23 11:27 114 H 129/106 H 07/15/23 11:10 133 H 144/97 H 07/15/23 09:09 36.9 C 124 H 14 142/101 H 95 - Physical Exam General Appearance: positive: No acute distress, Alert, Other (Well-nourished well-developed elderly gentleman who looks stated age. When he starts laughing spontaneously or speaking quickly, develops a slight wheeze) Eyes Bilateral: positive: PERRL, EOMI ENT: positive: No signs of dehydration Neck: positive: No JVD Respiratory: positive: No respiratory distress, Wheezes (Faint and intermittent). negative: Rales, Rhonchi Cardiovascular: positive: Irregularly irregular Peripheral Pulses: positive: 1+ Abdomen: positive: Non-tender, No organomegaly, Nml bowel sounds, No distention Skin: positive: Warm, Dry Extremities: positive: Full ROM, Pedal edema (trace) Neurologic/Psychiatric: positive: Oriented x3, CN's nml (2-12), Motor nml Conclusion/Plan - Problem List (1) Acute congestive heart failure Conclusion/Plan: He appears to be describing new onset congestive heart failure. Etiology appears to be the atrial fibrillation that I will address in problem #2. Troponin is negative for [place] He has had recent COVID so he could have mild myocarditis Atrial fibrillation with loss of 18% of atrial kick could also give him congestive heart failure. Plan: Rate control and diuresis track down the Echo report Qualifiers: Heart failure type: systolic Qualified Code(s): I50.21 - Acute systolic (congestive) heart failure (2) New onset atrial fibrillation Conclusion/Plan: TSH normal, troponin normal. No hypoxia. No history of cardiac disease. He does have unilateral leg edema in a patient who became more sedentary with COVID illness, and PE is a possibility. Plan: Diltiazem short acting 30 mg every 6 hours Start anticoagulation with Eliquis Echocardiogram already done in the ER and I need to track down that result Venous Doppler of unilateral leg edema Lopressor 5 mg IVP prn rate >110 refer to cardiology eval and opinion in the outpateitn setting. He already knows he wants to see Marcial Hermosillo with [facility]. (3) Hypertension Conclusion/Plan: Home medication is losartan at 50 mg daily. With the addition of a rate lowering drug of diltiazem, will need to watch his blood pressure. Depending on the echo he may be able to stand diltiazem or metoprolol. A low ejection fraction would contraindicate the use of diltiazem. Qualifiers: Hypertension type: primary hypertension Qualified Code(s): I10 - Essential (primary) hypertension (4) Urinary incontinence due to urethral sphincter incompetence Conclusion/Plan: Already been referred back to urology. He has had a TURP, a sling, and a mechanical sphincter in place. The incontinence seems to be the main decreased quality of life indicator for him. He will be followed up by [facility] urology - Lab Results Lab results reviewed: Yes Fish Bones: 07/15/23 09:36 07/15/23 14:39 - Diagnostic Imaging Results Diagnostic Imaging Results: positive: Final report reviewed Diagnostic Imaging Results Comments: Chest x-ray with congestive heart failure exacerbation. It shows interstitial pulmonary edema, patchy bibasilar atelectasis. - EKG Results EKG Interpreted Independently: No EKG Comparison: Changed from prior EKG EKG Findings: Atrial fibrillation with PVCs, nonspecific ST-T wave changes in the lateral leads. Rate 135. Core Measures - Anticipated LOS I expect patient to be DC'd or transferred within 96 hours.: Yes - DVT/VTE - Prophylaxis VTE/DVT Prophylaxis med ordered at admit?: Yes
[2023-07-15] MEDS: diltiaZEM 30 MG TABLET PO SCH (17:16)
[2023-07-15] MEDS: SODIUM CHLORIDE FLUSH 0.9% 10 ML SYRINGE IVP SCH (17:20)
[2023-07-15] MEDS: METOPROLOL 5 MG/5 ML VIAL IVP PRN (18:54)
[2023-07-15] MEDS: ATORVASTATIN 10 MG TABLET PO SCH (20:52)
[2023-07-15] MEDS: APIXABAN 5 MG TABLET PO SCH (20:52)
--- NOTE | 2023-07-15 23:08 | Ultrasound Report ---
PROCEDURE: Duplex Ext Veins Bilateral INDICATIONS: Evan Hodge MD TECHNIQUE: Real-time imaging, as well as color and pulse Doppler interrogation, were performed of the deep veins of both legs from the inguinal ligament to the popliteal fossa. Attempted visualization of the calf veins was performed. COMPARISON: None FINDINGS: The deep veins are normally compressible, and free of intraluminal thrombus. Color and pu lse Doppler demonstrate normal phasic intravascular flow. There is normal augmentation response to d istal compression maneuver. Suspected bilateral Anaya's cyst. The larger one on the right measures 3.6 x 2.4 cm. IMPRESSION: No deep venous thrombosis of the visualized lower extremities. Reviewed by: Jason Jerez MD on 07/15/2023 11:06 PM PST Approved by: Jason Jerez MD on 07/15/2023 11:06 PM [facility] Station ID: [id number]
[2023-07-16] MEDS: diltiaZEM 30 MG TABLET PO SCH ×2 (01:18→06:53)
[2023-07-16] MEDS: SODIUM CHLORIDE FLUSH 0.9% 10 ML SYRINGE IVP SCH ×3 (02:57→21:07)
[2023-07-16] MEDS: METOPROLOL 5 MG/5 ML VIAL IVP PRN ×2 (02:57→12:22)
[2023-07-16] MEDS: APIXABAN 5 MG TABLET PO SCH ×2 (08:20→21:07)
[2023-07-16] MEDS: CHOLECALCIFEROL 25 MCG TABLET PO SCH (08:21)
[2023-07-16] MEDS: LOSARTAN 50 MG TABLET PO SCH (08:21)
[2023-07-16] MEDS: MULTIVITAMIN TABLET PO SCH (08:21)
[2023-07-16] MEDS: FUROSEMIDE 20 MG/2 ML VIAL IVP SCH (08:37)
[2023-07-16] MEDS: METOPROLOL SUCCINATE 25 MG TABLET PO SCH ×2 (09:00→21:08)
--- NOTE | 2023-07-16 10:58 | PHARMACY PROGRESS NOTE ---
- Best Possible Medication History Admit Date and Time: 07/15/23 1501 Processed by: Pharmacy Medication History completed: Yes Patient Interview: Completed Secondary Source(s): Pharmacy records, Insurance records As the person ultimately responsible for medication therapy, providers are able to order a medication from an existing home medication list in [facility] via the "Reconcile Routine" prior to Confirmation of that medication by patient support representative. Such practice is discouraged except when the physician, in their clinical judgment, deems that a medical need exists for a medication without regard to previous use.
[2023-07-16] MEDS: FUROSEMIDE 20 MG TABLET PO SCH (14:11)
--- NOTE | 2023-07-16 16:14 | PROVIDER PROGRESS NOTE ---
Progress Note July 16, 2023 4:12 PM Patient was seen this morning. At that time he was still having bursts of tachycardia. He was frightened. Panic about the idea of going home because he was so short of breath. I reviewed the preliminary echo report which quickly became the final echo report that revealed his ejection fraction had global hypokinesis with an ejection fraction of 40%. He had thickened mitral leaflets with mild annular calcification and moderate central mitral regurg. Moderate pulmonary hypertension with a PASP of 56 mmHg. Mild right ventricular enlargement. Right ventricular systolic function normal. Severe increase in left atrial volume index. Severe right atrial volume index. I switched his medication from diltiazem since it is contraindicated in reduced ejection fraction. Switched him to metoprolol 25 p.o. twice daily. Gave him Lasix 20 mg IV push as well as started him on 20 mg p.o. twice daily. He is already on Cozaar 50 mg daily. He is already been started on Eliquis. He is already feeling better this afternoon. He felt this made this morning that he was no better than when he came in. But by this afternoon he is urinated for 5 times. His heart rate is now in the 60s. He is able to lay down more comfortably. Exam: Temperature 37.1, heart rate 88. But was lowest 62 at 1 PM. Blood pressure 141/82. Respirations 18. 92% on room air. Elderly gentleman who is comfortable. Smiling. Able to joke with the nurse. Neck is supple no JVD Lungs are clear. No crackles or rhonchi or wheezing. A regular rate and rhythm. Abdomen is soft, nontender. Extremities have no edema Conclusion/Plan - Problem List (1) Acute Systolic congestive heart failure Conclusion/Plan: This gentleman had COVID in the weeks before his congestive heart failure symptoms started. That is 1 possibility. He could also have cardiomyopathy induced from atrial fibrillation that has been unrecognized in the past. He does not appear to have had an AL and the troponins have been negative. In any case this gentleman now has a reduced ejection fraction. He is already on an ARB from home. I have added diuretic and beta-jessica this admission.There is been a marked improvement from this morning to this afternoon.Still tachycardic with exertion but much better at rest Plan: I have added the beta-jessica. Given him Lasix IV and will do Lasix p.o. later this afternoon. Already on an ARB. Neck step would to be referred to cardiology for possible stress test. I was hoping that his left atrial would be small and that by letting him have a better chance of going back into sinus rhythm. But left atrium is severely dilated. Qualifiers: Heart failure type: systolic Qualified Code(s): I50.21 - Acute systolic (congestive) heart failure (2) New onset atrial fibrillation Conclusion/Plan: TSH normal, troponin normal. No hypoxia. No history of cardiac disease. Because of unilateral leg edema I did Dopplers of the legs. There is no DVT in either leg. Plan: I stopped diltiazem this morning Started metoprolol 25 mg p.o. twice daily this morning Gave IV Lasix IV push x 1 this morning, and then started Lasix 20 mg p.o. twice daily this afternoon Continue Eliquis 5 mg p.o. twice daily Continue Lopressor 5 mg IV push as needed heart rate greater than 110 refer to cardiology eval and opinion in the outpateitn setting. He already knows he wants to see Marcial Hermosillo with [facility]. (3) Hypertension Conclusion/Plan: Home medication is losartan at 50 mg daily. With the addition of a rate lowering drug of diltiazem,And now metoprolol, will need to watch his blood pressure. I have stopped the diltiazem. His blood pressure is tolerating the metoprolol and Cozaar and diuretic altogether Qualifiers: Hypertension type: primary hypertension Qualified Code(s): I10 - Essential (primary) hypertension (4) Urinary incontinence due to urethral sphincter incompetence Conclusion/Plan: Already been referred back to urology. He has had a TURP, a sling, and a mechanical sphincter in place. The incontinence seems to be the main decreased quality of life indicator for him. He will be followed up by [facility] urology
[2023-07-16] MEDS: ATORVASTATIN 10 MG TABLET PO SCH (21:08)
[2023-07-17] MEDS: SODIUM CHLORIDE FLUSH 0.9% 10 ML SYRINGE IVP SCH ×3 (00:59→16:28)
[2023-07-17] MEDS: METOPROLOL 5 MG/5 ML VIAL IVP PRN (02:44)
[2023-07-17 06:01] LABS: CALCIUM 9.1 mg/dL (8.5-10.3); CREATININE 0.7 mg/dL (0.6-1.3); POTASSIUM 3.9 mmol/L (3.5-4.5)
[2023-07-17] MEDS: FUROSEMIDE 20 MG TABLET PO SCH ×2 (06:01→14:18)
[2023-07-17] MEDS: APIXABAN 5 MG TABLET PO SCH ×2 (08:28→20:53)
[2023-07-17] MEDS: METOPROLOL SUCCINATE 50 MG TABLET PO SCH ×2 (08:28→20:53)
[2023-07-17] MEDS: LOSARTAN 50 MG TABLET PO SCH (08:28)
[2023-07-17] MEDS: FUROSEMIDE 20 MG/2 ML VIAL IVP SCH (08:28)
[2023-07-17] MEDS: MULTIVITAMIN TABLET PO SCH (08:28)
[2023-07-17] MEDS: CHOLECALCIFEROL 25 MCG TABLET PO SCH (08:28)
--- NOTE | 2023-07-17 12:14 | PROVIDER PROGRESS NOTE ---
Progress Note July 17, 2023 12:06 PM He feels better because no orthopnea and leg edema almost all gone. However he still keeps on having bursts of sustained tachycardia into the 130s. He is asymptomatic with them. This morning's burst was described as a wide-complex tachycardia on telemetry. When the tech informed nursing, nurse was standing in the room with Mr. Shannon. The patient was speaking, gesticulating spontaneously, completely comfortable and unaware of the wide-complex tachycardia. I spoke to his future uniform cap operator. He is going to be seeing Dr. Marcial Hermosillo with [facility] cardiology. 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 He is recommending urgent cardioversion after transesophageal echo to make sure there are not intraventricular or atrial clots. He says this because, if the patient is seen in the outpatient setting, there will be delay in treatment. He is asking that I transfer the patient to [facility], the [facility] with cardioversion, and then the patient can return to me. I have spoken to Evan, the transfer center nurse. Evan has then transferred this request to the [employer] research kennel supervisor. The [employer] research kennel supervisor will be calling me with instructions. Our hospital will be responsible for coordinating transfer there and back. I have informed the patient. His is at the bedside as well. We discussed why this is being done this way. He is amenable to doing this. I reminded the patient not to have anything to eat or drink after midnight tonight. Exam: Temperature 36.8, heart rate is 139. Blood pressure 135/79. Respirations 18. 94% on room air. 5 foot 8 inch male, 87 kg. I do not know how much I believe this weight considering he was 95.5 kg on the fifth and the 6. I know I been diuresing him but I am startled at the amount of weight drop. Neck is supple without JVD Lungs are completely clear without crackles Irregularly irregular cardiac rhythm. It is tachycardic. The patient is comfortable, no acute distress Abdomen is soft, nontender, and he has eaten breakfast and lunch. Eating 100% of his food. Last bowel movement was yesterday. Extremities have trace edema in comparison to the 2+ edema from admission. Alert, oriented to person place and time. And situation. Lab: BMP normal today. Fasting glucose 132 BNP is up to 578 from July 15 Conclusion/Plan - Problem List (1) Acute Systolic congestive heart failure Conclusion/Plan: Differential diagnosis for new cardiomyopathy " COVID induced cardiomyopathy. COVID occurred 1 month before symptoms Drinks 3 drinks a day. No history of alcohol abuse. 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 Echo shows ejection fraction of 40% with a dilated left atrium and moderate mitral regurg. Moderately increased right heart pressures. Plan: Initially was given Cardizem but is contraindicated in low ejection fraction. Switched over to metoprolol. Metoprolol still not controlling his rate. He is also been well diuresed and has lost quite a bit of weight with this. Increase metoprolol from 25 mg p.o. twice daily to 50 mg p.o. twice daily Currently on Lasix 20 mg IV push in the morning as well as 20 mg p.o. twice daily. I will stop the 20 mg IV push Patient already on Cozaar 50 mg a day Monitor BNP and BMP on a daily basis. Monitor weight with I/O Patient will be transferred to [facility] tomorrow and then returned here Qualifiers: Heart failure type: systolic Qualified Code(s): I50.21 - Acute systolic (congestive) heart failure (2) New onset atrial fibrillation Conclusion/Plan: TSH normal, troponin normal. No hypoxia. No history of cardiac disease. Because of unilateral leg edema I did Dopplers of the legs. There is no DVT in either leg. Plan is as discussed in HPI. He will get a transesophageal echo, cardioversion, probably loaded with amiodarone and then return to ar. I would anticipate discharge shortly thereafter if he stays stable.Patient and are amenable to the transfer. (3) Hypertension Conclusion/Plan: Home medication is losartan at 50 mg daily. With the addition of a rate lowering drug of diltiazem,And now metoprolol, will need to watch his blood pressure. I have stopped the diltiazem. His blood pressure is tolerating the metoprolol and Cozaar and diuretic altogether. Blood pressure today is 135/79. Qualifiers: Hypertension type: primary hypertension Qualified Code(s): I10 - Essential (primary) hypertension (4) Urinary incontinence due to urethral sphincter incompetence Conclusion/Plan: Already been referred back to urology. He has had a TURP, a sling, and a mechanical sphincter in place. The incontinence seems to be the main decreased quality of life indicator for him. He will be followed up by [facility] urology
[2023-07-17] MEDS: ATORVASTATIN 10 MG TABLET PO SCH (20:53)
[2023-07-18] MEDS: SODIUM CHLORIDE FLUSH 0.9% 10 ML SYRINGE IVP SCH ×2 (01:38→10:13)
[2023-07-18] MEDS: FUROSEMIDE 20 MG TABLET PO SCH (06:25)
[2023-07-18] MEDS ORDERED: ceFAZolin 2 GM VIAL IVP STA (09:20)
[2023-07-18 11:37] VITALS: BP 140/83; O2SAT 95
--- NOTE | 2023-07-18 12:33 | PROVIDER PROGRESS NOTE ---
Progress Note July 18, 2023 12 PM Patient was seen this morning. He is NPO. Already grumbling about being hungry. Still having bursts of tachycardia into the 130s. Mainly with exertion. But no chest pain, cough, orthopnea, edema. His edema and orthopnea from admission have improved tremendously. Exam: Temperature 36.4, heart rate 86 and irregular, blood pressure 124/79, respirations 18, 94% on room air 5 foot 8 inches tall, 86 kg. He was admitted at 95 kg. Was 87 kg yesterday. So he is losing weight during his stay and attributed to diuresis. Supple neck with no JVD He is short of breath with activity such as rolling over in bed or getting out of bed to go to the bathroom. But there are no crackles. Irregularly irregular rhythm. Abdomen is soft, nontender, normal bowel sounds Trace pitting edema around his ankles. He was worse on admission. He does have changes of redness and heat where his IV was pulled this morning. He is in the antecubital fossa on the right arm. says that from the time she got here this morning to when I saw him 2 hours later, the redness has spread. The skin is red, hot, not tender. So far no phlebitis felt. Neurologically alert and oriented to person place and time, situation. Can follow commands. Normal speech structure. No focal deficits and no ataxia. Conclusion/Plan - Problem List (1) Acute Systolic congestive heart failure Conclusion/Plan: Differential diagnosis for new cardiomyopathy " COVID induced cardiomyopathy. COVID occurred 1 month before symptoms Drinks 3 drinks a day. No history of alcohol abuse. 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 Echo shows ejection fraction of 40% with a dilated left atrium and moderate mitral regurg. Moderately increased right hear t pressures. Initially was given Cardizem but is contraindicated in low ejection fraction. Switched over to metoprolol. Metoprolol still not controlling his rate. He is also been well diuresed and has lost quite a bit of weight with this. I increased metoprolol from 25 mg p.o. twice daily to 50 mg p.o. twice daily but no dose this morning since he is NPO. Rate still has bursts of 130s when just laying in bed speaking to RN or me. Currently on Lasix 20 mg p.o. twice daily. Patient already on Cozaar 50 mg a day Monitor BNP and BMP on a daily basis. Monitor weight with I/O Patient will be transferred to [facility] today and then returned here I anticipate keeping him tonight and sending him home in am with new meds tomorrow. he will followup with MD Jaimee with [facility] Cardiology. Qualifiers: Heart failure type: systolic Qualified Code(s): I50.21 - Acute systolic (congestive) heart failure (2) New onset atrial fibrillation Conclusion/Plan: TSH normal, troponin normal. No hypoxia. No history of cardiac disease. Because of unilateral leg edema I did Dopplers of the legs. There is no DVT in either leg. Plan: Today, he will get a transesophageal echo, cardioversion, probably loaded with amiodarone and then return to [place]. I would anticipate discharge shortly thereafter if he stays stable.Patient and are amenable to the transfer. (3) Hypertension Conclusion/Plan: Home medication is losartan at 50 mg daily. With the addition of a rate lowering drug of diltiazem,And now metoprolol, will need to watch his blood pressure. I have stopped the diltiazem. His blood pressure is tolerating the metoprolol and Cozaar and diuretic altogether. Blood pressure today is 124/79. Qualifiers: Hypertension type: primary hypertension Qualified Code(s): I10 - Essential (primary) hypertension (4) Urinary incontinence due to urethral sphincter incompetence Conclusion/Plan: Already been referred back to urology. He has had a TURP, a sling, and a mechanical sphincter in place. The incontinence seems to be the main decreased quality of life indicator for him. He will be followed up by [facility] urology
--- NOTE | 2023-07-18 20:27 | Discharge Plan ---
Discharge Plan Problem Reviewed?: Yes Disposition: 02 Transfer Acute Care Hosp Condition: Stable Prescriptions: Furosemide [Lasix] 20 mg PO DAILY #30 tablet Metoprolol Tartrate [Lopressor] 100 mg PO BID #120 tablet Rivaroxaban [Xarelto] 20 mg PO DAILY #30 tablet Instruction Topics: AFL/Afib, Atrial Fibrillation Dc, Stroke Prevent Live W Atrial Fib No Smoking: If you smoke, Please STOP! Call for help. Follow-up with: Brodie Stratton MD [Primary Care Provider] -
--- NOTE | 2023-07-18 20:28 | DISCHARGE SUMMARY ---
Discharge Summary Admit Date: 07/15/23 Discharge Date: 07/18/23 Discharging Provider: Yen Maki MD Primary Care Provider: Brodie skinner MD Code Status: Attempt Resuscitation Condition at Discharge: Stable Discharge Disposition: 02 Transfer Acute Care Hosp - DIAGNOSES Discharge Diagnoses with Status of Each Condition: 1. Acute systolic congestive heart failure 2. Tachycardic induced cardiomyopathy 3. New onset atrial fibrillation 4. Hypertension 5. Urinary incontinence due to urethral sphincter incompetence - HPI History of Present Illness: This patient does not have any antecedent cardiac history. His main problems have been urological. He became ill with COVID in May 2023 and took Paxlo vid. He retested again June 11, 2023 because he was having low energy, wheezing, and the wheezing and shortness of breath seem to be a little worse when he is laying flat in bed. Seem to be a little bit better when he stood up or sat up. He was having chest aching with exertion on the right side. It seemed to go away with rest. He called the office with these complaints on June 26 and was scheduled for an appointment the next day. Seen in the primary care provider office where an EKG showed him to have normal sinus rhythm. His heart rate was 76 beats a minute. And his overall exam was negative from a cardiovascular perspective. No mention of edema or not. There was discussion on whether he was having post-COVID symptoms and it was requested that he get a chest x-ray and an echo and his albuterol inhaler was refilled. Chest x-ray had bibasilar atelectasis, no effusions, and he was felt to have poor inspiratory effort. A referral for an echo was done. He then presented to the [facility] clinic/walk-in clinic today. He was having a swollen right ankle. It been going on for 5 days. He was still reporting shortness of breath. His heart rate was 134 beats a minute and was irregularly irregular. He was 97% on room air. They felt that he should be sent to the emergency room for further evaluation and management. And he was brought here by EMS from the clinic. In our emergency room He described the shortness of breath and intermittent palpitations for the last few weeks. Unilateral leg edema. And orthopnea. He denied fever, cough, chest congestion. Denies eustachian tube dysfunction. his heart rate was 124 and telemetry and EKG confirmed atrial fibrillation. Blood pressure 142/101. He was 95% saturated on room air. He is received 3 doses of diltiazem. Because the chest x-ray was interpreted as possible congestive heart failure he was also given Lasix 20 mg IV push. Patient still has a heart rate is consistently above 110. Assess the emergency room provider is asked me to place him in observation to control his heart rate. An echo was being done in the emergency room before the patient was transferred to [facility]. Workup in the ER consisted of the EKG, troponin, and TSH. Those were normal. BNP was mildly elevated at 303. Electrolytes and CBC were normal. Calcium magnesium and phosphorus were normal. Random glucose is 134. - Past Medical History Cardiovascular: reports: Hypertension, High cholesterol Respiratory: reports: Other (COVID 05/2023, status post Paxlovid) Neuro: reports: Other (Benign positional vertigo) Endocrine/Autoimmune: reports: None GI: reports: Colon polyps, Other (diverticulosis on scope 11/2022) : reports: Benign prostate hypertrophy, Incontinence, Other (UTI in 2013 and 2019. 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 mechanical urinary sphicter 2020) HEENT: reports: Rhinoplasty Derm: reports: Other (AK treated w cryo) - CONSULTS | PROCEDURES Procedures: Venous duplex of legs without DVT Chest x-ray with pulmonary edema Echocardiogram with ejection fraction 40%. Mitral regurgitation. Mild pulmonary hypertension with PASP 56. Dilated left atrium. - HOSPITAL COURSE Hospital Course: (1) Acute Systolic congestive heart failure Conclusion/Plan: Differential diagnosis for new cardiomyopathy " COVID induced cardiomyopathy. COVID occurred 1 month before symptoms Drinks 3 drinks a day. No history of alcohol abuse. 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 Echo shows ejection fraction of 40% with a dilated left atrium and moderate mitral regurg. Moderately increased right heart pressures. Initially was given Cardizem but is contraindicated in low ejection fraction. Switched over to metoprolol. Metoprolol still not controlling his rate. He is also been well diuresed and has lost quite a bit of weight with this. I increased metoprolol from 25 mg p.o. twice daily to 50 mg p.o. twice daily but no dose this morning since he is NPO. Rate still has bursts of 130s when just laying in bed speaking to RN or me. Currently on Lasix 20 mg p.o. twice daily. Patient already on Cozaar 50 mg a day I had spoken to [facility] cardiology. The patient had identified that group as the contract negotiator he was going to see when he got out of the hospital. Dr. Hermosillo asked that the patient be transferred to [facility] to get an urgent transesophageal echo with cardioversion. The patient was to return to us. I anticipated the patient returning to us, me keeping in the night and he would be discharged on July 19. However we received information from [facility] that they felt the patient should stay there because his congestive heart failure was worse. As such the patient was discharged from our system as a transfer to [facility] (2) New onset atrial fibrillation Conclusion/Plan: TSH normal, troponin normal. No hypoxia. No history of cardiac disease. Because of unilateral leg edema I did Dopplers of the legs. There is no DVT in either leg. (3) Hypertension Conclusion/Plan: Home medication is losartan at 50 mg daily. With the addition of a rate lowering drug of diltiazem,And now metoprolol, will need to watch his blood pressure. I have stopped the diltiazem. His blood pressure is tolerating the metoprolol and Cozaar and diuretic altogether. Blood pressure today is 124/79. (4) Urinary incontinence due to urethral sphincter incompetence Conclusion/Plan: Already been referred back to urology. He has had a TURP, a sling, and a mechanical sphincter in place. The incontinence seems to be the main decreased quality of life indicator for him. He will be followed up by [facility] urology At the time of discharge this morning, the patient was alert, oriented. Grumbling because he was really hungry and had been kept n.p.o. in preparation for the procedure at [facility]. I had already ordered food for him when he got back and I promised him it would be waiting for him. Neck was supple. Lungs had occasional crackles. But they were clear with cough and then come back. He had burst of tachycardia. He was slow down to 64 and then with exertion of getting up to go to the bathroom be 130. Blood pressure was 140/83. Respirations 18. 95% on room air. Abdomen was soft, nontender with normal bowel sounds. Extremities no longer had edema. He has orthopnea that was present on admission had improved tremendously. He was transferred in stable condition. This document was made in part using voice recognition software. While efforts are made to proofread this document, sound alike and grammatical errors may occur. - ALLERGIES Allergies/Adverse Reactions: Allergies Allergy/AdvReac Type Severity Reaction Status Date / Time latex Allergy Rash Verified 07/15/23 09:39 lisinopril AdvReac Intermediate Unknown Verified 01/14/22 05:43 - MEDICATIONS Home Medications: Ambulatory Orders Medication Instructions Recorded Confirmed Atorvastatin Calcium 20 mg PO DAILY 10/21/18 07/15/23 Cholecalciferol (Vitamin D3) 2,000 unit PO DAILY 10/21/18 07/16/23 [Vitamin D3] Losartan Potassium 50 mg PO DAILY 10/21/18 07/15/23 Multivit-Min/FA/Lycopen/Lutein 1 tab PO DAILY 10/21/18 07/15/23 [Adults 50 Plus Multivitamin] Albuterol Sulf [Ventolin Hfa 1 inh INH PRN PRN 07/15/23 07/15/23 Inhaler] L. Acidophilus/L. Rhamnosus 1 cap PO DAILY 07/16/23 07/16/23 [Probiotic 15 Billion Cell Cap] Furosemide [Lasix] 20 mg PO DAILY #30 tablet 07/17/23 Metoprolol Tartrate [Lopressor] 100 mg PO BID #120 tablet 07/17/23 Rivaroxaban [Xarelto] 20 mg PO DAILY #30 tablet 07/17/23 - LABS Result Diagrams: 07/15/23 09:36 07/17/23 05:21
== END 2023-07-18 15:30 | disposition short-term general hospital (02) | DRG 291 ==
LOC: EDUNIT# → ED 09:07 → MS2 15:01 → OBSVTOIN 07-17 15:26
PROVIDERS: ADMIT Specialist; ATTEND Specialist
DX: I11.0 Hypertensive heart disease with heart failure (principal); I50.21 Acute systolic (congestive) heart failure; I48.91 Unspecified atrial fibrillation; R07.2 Precordial pain; I50.9 Heart failure, unspecified; R32 Unspecified urinary incontinence; Z87.891 Personal history of nicotine dependence; I42.9 Cardiomyopathy, unspecified; E78.00 Pure hypercholesterolemia, unspecified; N40.1 Benign prostatic hyperplasia with lower urinary tract symptoms; N39.498 Other specified urinary incontinence; H54.7 Unspecified visual loss; I49.3 Ventricular premature depolarization; M47.9 Spondylosis, unspecified; Z79.01 Long term (current) use of anticoagulants; Z79.899 Other long term (current) drug therapy; Z86.16 Personal history of COVID-19
CPT/HCPCS: 36415; 71045; 80048; 80053; 83690; 83735; 83880; 84443; 84484; 85025; 85379; 93005; 93306; 93970; 96374; 96375; 96376; 99284; 99285; A9270; G0378

== ENCOUNTER 2023-07-25 08:51 | Outpatient (CLI) | payer MEDICARE ==
[2023-07-25 09:25] LABS: ALBUMIN 4.3 g/dL (3.2-5.5); ALBUMIN/GLOBULIN RATIO 1.3 (1.0-2.2); BILIRUBIN,TOTAL 0.7 mg/dL (0.2-1.0); CALCIUM 10.1 mg/dL (8.5-10.3); POTASSIUM 4.5 mmol/L (3.5-4.5); TOTAL PROTEIN 7.5 g/dL (6.4-8.9)
[2023-07-25 09:53] LABS: THYROID STIMULATING HORMONE 6.29 uIU/mL (0.34-5.60)
== END 2023-07-25 08:52 | disposition home or self-care (01) ==
LOC: LAB 08:51
PROVIDERS: ATTEND Family Medicine
DX: I27.20 Pulmonary hypertension, unspecified (principal); I48.0 Paroxysmal atrial fibrillation; I50.21 Acute systolic (congestive) heart failure
CPT/HCPCS: 36415; 80053; 84439; 84443

== ENCOUNTER 2023-08-23 10:53 | Outpatient (CLI) | payer MEDICARE ==
[2023-08-23 12:02] LABS: THYROID STIMULATING HORMONE 4.32 uIU/mL (0.34-5.60)
== END 2023-08-23 10:54 | disposition home or self-care (01) ==
LOC: LAB 10:53
PROVIDERS: ATTEND Family Medicine
DX: I50.21 Acute systolic (congestive) heart failure (principal)
CPT/HCPCS: 36415; 84443